=== PATIENT | female | born 1940 | race Caucasian/White ===

== ENCOUNTER → 2019-02-24 | Outpatient (CLI) | payer MEDICARE | END | disposition home or self-care (01) | LOC: LAB SHORT 14:17 → LAB 14:17 | DX: N72 Inflammatory disease of cervix uteri (principal) | CPT/HCPCS: 87529 ==

== ENCOUNTER → 2020-09-25 | Outpatient (CLI) | payer MEDICARE ==
[~2020-09-25] MED LIST: METO25ER PO; OLME20 PO; Prozac20 MG PO
== END | disposition home or self-care (01) ==
LOC: LAB SHORT 07:31 → LAB 07:31
DX: D48.5 Neoplasm of uncertain behavior of skin (principal)
CPT/HCPCS: 88305

== ENCOUNTER 2023-12-31 06:36 | Day surgery (SDC) | payer MEDICARE ==
[2023-12-31] VITALS (15 sets, daily range): BP systolic 97–145; BP diastolic 53–102
[~2023-12-31] VITALS: Ht 165.1 cm; Wt 82.5 kg
[~2023-12-31 06:36] MED LIST changes: +CLON1 PO; +MULVITA PO; +NS 500 ML IV SCH
[2023-12-31] MEDS ORDERED: propofoL 20 ML IV ONE (06:38)
--- NOTE | 2023-12-31 07:15 | NUR ---
Ambulatory in Day Surgery History, Chart, Medications and Allergies reviewed before start of procedure. Pre-Op teaching done. Pt verbalizes understanding. Patient States Post-Procedure ride home has been arranged.
--- NOTE | 2023-12-31 07:53 | NUR ---
12/31/23 0753 Caterina Seals CONFIRMED AND REVIEWED H&P, MEDCICATIONS, ALLERGIES, MEDICAL HISTORY, RESPIRATORY HISTORY, VITAL SIGNS, 3-LEAD EKG, CONSENTS, AND PHYSICIAN ORDERS. PATIENT CONFIRMS NPO STATUS AND AGREES WITH SCHEDULED PROCEDURE. MONITOR INTACT WITH CONTINUOUS PULSE OXIMETRY, CAPNOGRAPHY, 3-LEAD EKG, INTERMITTENT BP. SUPPLEMENTAL O2 TO BE TITRATED THROUGHOUT PROCEDURE TO MAINTAIN O2 SATURATION ABOVE 90%. PATIENT DETERMINED TO BE ASA APPROPRIATE FOR PROPOFOL SEDATION PRIOR TO START OF PROCEDURE BY DR. BALBUENA
--- NOTE | 2023-12-31 08:15 | NUR ---
PT TOLERATING PO FLUIDS AND CRACKERS WELL. Discharge instructions reviewed with patient. Patient verbalizes understanding. Copy given to patient to take home. Patient States Post-Procedure ride home has been arranged.
--- NOTE | 2023-12-31 08:25 | NUR ---
Patient up to Ambulate independently. Gait steady.
--- NOTE | 2023-12-31 08:30 | NUR ---
Discharged via wheelchair to private car for ride home.
== END 2023-12-31 08:34 | disposition home or self-care (01) ==
LOC: ORSCMMR 06:36 → ORD 07:30 → ORSCMMR 08:34
PROVIDERS: Internal Medicine Gastroenterology
PROC: 0DBN8ZX Excision of Sigmoid Colon, Via Natural or Artificial Opening Endoscopic, Diagnostic (ICD-10-PCS; principal; 2023-12-31 07:30)
PROC: 0DBH8ZX Excision of Cecum, Via Natural or Artificial Opening Endoscopic, Diagnostic (ICD-10-PCS; principal; 2023-12-31 07:30)
DX: Z12.11 Encounter for screening for malignant neoplasm of colon (principal); R19.5 Other fecal abnormalities; D12.0 Benign neoplasm of cecum; D12.5 Benign neoplasm of sigmoid colon; K64.4 Residual hemorrhoidal skin tags; K57.30 Diverticulosis of large intestine without perforation or abscess without bleeding; M62.89 Other specified disorders of muscle; F32.A Depression, unspecified; Z79.899 Other long term (current) drug therapy
CPT/HCPCS: 88305; J2704; J7040